=== PATIENT | female | born 1975 | race Two or more races ===

== ENCOUNTER 2018-12-09 10:36 | Outpatient (CLI) | payer OTHER | END 2018-12-09 10:48 | disposition home or self-care (01) | LOC: NUCLEAR 10:36 | DX: I87.2 Venous insufficiency (chronic) (peripheral) (principal) ==

== ENCOUNTER 2020-07-27 08:47 | Outpatient (CLI) | payer OTHER | END 2020-07-27 08:55 | disposition home or self-care (01) | LOC: LAB 08:47 | PROVIDERS: ATTEND Internal Medicine Hematology & Oncology | DX: D50.8 Other iron deficiency anemias (principal); I10 Essential (primary) hypertension; D51.1 Vitamin B12 deficiency anemia due to selective vitamin B12 malabsorption with proteinuria; D51.0 Vitamin B12 deficiency anemia due to intrinsic factor deficiency; E03.8 Other specified hypothyroidism; E06.3 Autoimmune thyroiditis; M32.8 Other forms of systemic lupus erythematosus ==